=== PATIENT | female | born 1975 | race Caucasian/White ===

== ENCOUNTER 2017-12-02 21:41 | Emergency (ER) | payer BC ==
[~2017-12-02] VITALS: Ht 162.6 cm; Wt 63.5 kg
[2017-12-02] MEDS ORDERED: NS IV 1000 ML 1,000 ML IV ONE (22:03)
[2017-12-02] MEDS ORDERED: PANTOPRAZOLE 40 MG/10 ML (PROTONIX) VIAL IV STA (22:03)
[2017-12-02] MEDS ORDERED: KETOROLAC 30 MG/ML VIAL IVP STA (22:03)
[2017-12-02] MEDS ORDERED: NFBIOT1000 PO (22:05)
[2017-12-02] MEDS ORDERED: MELA3TAB PO (22:05)
[2017-12-02] MEDS ORDERED: METF500T8 (22:05)
[2017-12-02] MEDS ORDERED: ESCI10TA55 (22:05)
[2017-12-02] MEDS ORDERED: PANT40TA3 (22:05)
[2017-12-02] MEDS ORDERED: LISI-556 (22:05)
[2017-12-02] MEDS ORDERED: L.AC1CAP6 PO (22:05)
[2017-12-02] MEDS ORDERED: CETI10CA PO (22:05)
[2017-12-02 22:15] LABS: BASOPHILS # (AUTO) 0.1 10^3/uL (0.0-0.1); BASOPHILS % (AUTO) 0 % (0-10); EOSINOPHILS # (AUTO) 0.3 10^3/uL (0.0-0.3); EOSINOPHILS % (AUTO) 3 % (0-10); HEMATOCRIT 44 % (35-52); LYMPHOCYTES # (AUTO) 1.4 X 10^3 (1.0-4.0); LYMPHOCYTES % (AUTO) 10 % (12-44); MEAN CORPUSCULAR HEMOGLOBIN 29 PG (25-34); MEAN CORPUSCULAR HGB CONC 34 G/DL (32-36); MEAN CORPUSCULAR VOLUME 85 FL (80-99); MEAN PLATELET VOLUME 10.9 FL (7.4-10.4); MONOCYTES % (AUTO) 8 % (0-12); NEUTROPHILS # (AUTO) 10.7 X 10^3 (1.8-7.8); NEUTROPHILS % (AUTO) 79 % (42-75); PLATELET COUNT 317 10^3/uL (130-400); RED BLOOD COUNT 5.18 10^6/uL (4.35-5.85); RED CELL DISTRIBUTION WIDTH 13.6 % (10.0-14.5); WHITE BLOOD COUNT 13.5 10^3/uL (4.3-11.0)
[2017-12-02] MEDS ORDERED: ONDANSETRON 4 MG/2 ML (SDV) Z0FRAN IVP ONE (22:15)
[2017-12-02] MEDS ORDERED: HYOSCYAMINE 0.125 MG (LEVSIN) TAB SL ONE (22:15)
[2017-12-02 22:16] LABS: BILIRUBIN,URINE NEGATIVE (NEGATIVE); CLARITY,URINE SLIGHTLY CLOUDY; COLOR,URINE YELLOW; GLUCOSE, URINE (UA) NEGATIVE (NEGATIVE); KETONES,URINE 3+ (NEGATIVE); LEUKOCYTE ESTERASE ,URINE 2+ (NEGATIVE); NITRITE,URINE NEGATIVE (NEGATIVE); PH,URINE 5 (5-9); PROTEIN,URINE NEGATIVE (NEGATIVE); UROBILINOGEN,URINE NORMAL (NORMAL)
--- NOTE | 2017-12-02 22:25 | ED Abdominal Pain ---
General Chief Complaint: Abdominal/GI Problems Stated Complaint: ABD PAIN Nursing Triage Note: Patient reports epigastric pain on the 18 of November that resolved. Patient reports diarrhea since. Epigastric pain returned today at 1600 while patient was laying on couch. c/o nausea and diarrhea. denies emesis. Sepsis Screen: No Definite Risk Source of Information: Patient Exam Limitations: No Limitations History of Present Illness Date Seen by Provider: Dec 02, 2017 Time Seen by Provider: 21:56 Initial Comments PT ARRIVES VIA POV FROM HOME STATES SHE HAD AN EPISODE OF EPIGASTRIC PAIN ON 11/18/17--LASTED SEVERAL HOURS SINCE THEN, SHE HAS HAD NAUSEA AND WATERY DIARRHEA AND A DULL PAIN IN THE AREA HAS HAD WATERY DIARRHEA X 4 TODAY NO VOMITING URINATING OK ABLE TO KEEP DOWN LIQUIDS HAS HAD SUBJECTIVE FEVER/SWEATS/CHILLS TODAY EPIGASTRIC PAIN RETURNED AN HAS BEEN SEVERE-WAXES AND WANES--AND OCCASIONALLY RADIATES THROUGH TO BACK NO HISTORY OF SIMILAR HAS NOT SOUGHT CARE UNTIL TODAY FOR THIS PROBLEM LMP FIRST WEEK OF NOVEMBER, NORMAL. WITH VASECTOMY PCP: DR. BRADSHAW Allergies and Home Medications Allergies Coded Allergies: Penicillins (Verified Allergy, Unknown, 12/02/17) Home Medications Ciprofloxacin HCl 500 Mg Tablet, 500 MG PO BID Prescribed by: TARAN BRENNAN on 12/03/1722 Hyoscyamine Sulfate 0.125 Mg Tab.subl, 1-2 TAB SL Q4H Prescribed by: TARAN BRENNAN on 12/03/1722 Metronidazole 500 Mg Tablet, 500 MG PO QID Prescribed by: TARAN BRENNAN on 12/03/1722 Ondansetron 4 Mg Tab.rapdis, 4 MG PO Q4H Prescribed by: TARAN BRENNAN on 12/03/1722 Patient Home Medication List Home Medication List Reviewed: Yes Review of Systems Constitutional: see HPI, chills, diaphoresis, fever EENTM: No Symptoms Reported Respiratory: No Symptoms Reported Cardiovascular: No Symptoms Reported Gastrointestinal: See HPI, Abdominal Pain, Diarrhea, Nausea, Poor Appetite; Denies Poor Fluid Intake; Vomiting Genitourinary: No Symptoms Reported Musculoskeletal: see HPI, back pain Skin: no symptoms reported Psychiatric/Neurological: No Symptoms Reported Endocrine: No Symptoms Reported Hematologic/Lymphatic: No Symptoms Reported Past Jxsgotn-[id number]-[id number] Hx Patient Social History Alcohol Use: Denies Use Recreational Drug Use: No Smoking Status: Never a Smoker Recent Foreign Travel: No Contact w/Someone Who Travel: No Recent Infectious Disease Expo: No Physical Abuse: No Sexual Abuse: No Past Medical History Surgeries: Yes (WISDOM TEETH REMOVED ) Respiratory: No Cardiac: Yes High Cholesterol, Hypertension Neurological: No Reproductive Disorders: No Genitourinary: Yes (KIDNEY STONES FOUND INCIDENTALLY ON CT) Kidney Stones Gastrointestinal: Yes (FATTY LIVER) Gastroesophageal Reflux, Liver Disease/Jaundice, C-Diff Musculoskeletal: No Endocrine: Yes ("PRE-DIABETES" ) HEENT: No Cancer: No Psychosocial: Yes Anxiety, Depression Nursing Suicide Risk Score: 0 Integumentary: No Blood Disorders: No Physical Exam Vital Signs Vital Signs - First Documented 12/02/17 21:50 Temp 98.2 Pulse 115 Resp 18 B/P (MAP) 139/104 (116) Pulse Ox 98 Capillary Refill : Less Than 3 Seconds General Appearance: WD/WN, no apparent distress, thin Neck: normal inspection Respiratory: normal breath sounds, no respiratory distress, no accessory muscle use Cardiovascular: regular rate, rhythm, no murmur Gastrointestinal: normal bowel sounds, soft, no organomegaly, no pulsatile mass ; No distended, No guarding, No rebound; tenderness (EPIGASTRIC AND MILD LUQ TENDERNESS); No hernia, No mass Extremities: normal inspection, normal capillary refill Back: normal inspection, no CVA tenderness, no vertebral tenderness 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, no motor/sensory deficits, alert, normal mood/affect, oriented x 3 Skin: normal color, warm/dry Progress/Results/Core Measures Lab Results Laboratory Tests Test 12/02/17 22:00 12/02/17 22:05 Range/Units Urine Color YELLOW Urine Clarity SLIGHTLY CLOUDY Urine pH 5 5-9 Urine Specific [place] 1.020 1.016-1.022 Urine Protein NEGATIVE NEGATIVE Urine Glucose (UA) NEGATIVE NEGATIVE Urine Ketones 3+ H NEGATIVE Urine Nitrite NEGATIVE NEGATIVE Urine Bilirubin NEGATIVE NEGATIVE Urine Urobilinogen NORMAL NORMAL MG/DL Urine Leukocyte Esterase 2+ H NEGATIVE Urine RBC (Auto) 1+ H NEGATIVE Urine RBC 0-2 /HPF Urine WBC 5-10 H /HPF Urine Squamous Epithelial Cells 5-10 /HPF Urine Crystals NONE /LPF Urine Bacteria MODERATE H /HPF Urine Casts NONE /LPF Urine Mucus NEGATIVE /LPF Urine Culture Indicated NO White Blood Count 13.5 H 4.3-11.0 10^3/uL Red Blood Count 5.18 4.35-5.85 10^6/uL Hemoglobin 15.0 11.5-16.0 G/DL Hematocrit 44 35-52 % Mean Corpuscular Volume 85 80-99 FL Mean Corpuscular Hemoglobin 29 25-34 PG Mean Corpuscular Hemoglobin Concent 34 32-36 G/DL Red Cell Distribution Width 13.6 10.0-14.5 % Platelet Count 317 130-400 10^3/uL Mean Platelet Volume 10.9 H 7.4-10.4 FL Neutrophils (%) (Auto) 79 H 42-75 % Lymphocytes (%) (Auto) 10 L 12-44 % Monocytes (%) (Auto) 8 0-12 % Eosinophils (%) (Auto) 3 0-10 % Basophils (%) (Auto) 0 0-10 % Neutrophils # (Auto) 10.7 H 1.8-7.8 X 10^3 Lymphocytes # (Auto) 1.4 1.0-4.0 X 10^3 Monocytes # (Auto) 1.0 0.0-1.0 X 10^3 Eosinophils # (Auto) 0.3 0.0-0.3 10^3/uL Basophils # (Auto) 0.1 0.0-0.1 10^3/uL Sodium Level 139 135-145 MMOL/L Potassium Level 3.7 3.6-5.0 MMOL/L Chloride Level 105 98-107 MMOL/L Carbon Dioxide Level 22 21-32 MMOL/L Anion Gap 12 5-14 MMOL/L Blood Urea Nitrogen 13 7-18 MG/DL Creatinine 0.80 0.60-1.30 MG/DL Estimat Glomerular Filtration Rate > 60 BUN/Creatinine Ratio 16 Glucose Level 103 70-105 MG/DL Calcium Level 9.9 8.5-10.1 MG/DL Total Bilirubin 1.0 0.1-1.0 MG/DL Aspartate Amino Transf (AST/SGOT) 23 5-34 U/L Alanine Aminotransferase (ALT/SGPT) 27 0-55 U/L Alkaline Phosphatase 64 40-136 U/L Total Protein 8.1 6.4-8.2 GM/DL Albumin 4.9 H 3.2-4.5 GM/DL Amylase Level 60 25-125 U/L Lipase 40 8-78 U/L Serum Test, Qualitative NEGATIVE NEGATIVE My Orders Orders - TARAN BRENNAN DO Saline Lock/Iv-Start (12/02/17 22:03) Amylase (12/02/17 22:03) Cbc With Automated Diff (12/02/17 22:03) Comprehensive Metabolic Panel (12/02/17 22:03) Hcg,Qualitative Serum (12/02/17 22:03) Lipase (12/02/17 22:03) Ua Culture If Indicated (12/02/17 22:03) Ct Abdomen/Pelvis W (12/02/17 22:03) Abdomen, Flat & Upright/Decub (12/02/17 22:03) Saline Lock/Iv-Start (12/02/17 22:03) Ketorolac Injection (Toradol Injection) (12/02/17 22:03) Ondansetron Injection (Zofran Injectio (12/02/17 22:15) Hyoscyamine Sl Tablet (Levsin Sl Tablet) (12/02/17 22:15) Saline Lock/Iv-Start (12/02/17 22:03) Ns Iv 1000 Ml (Sodium Chloride 0.9%) (12/02/17 22:03) Pantoprazole Injection (Protonix Injecti (12/02/17 22:03) Iohexol Injection (Omnipaque 350 Mg/Ml 1 (12/02/17 23:15) Ns (Ivpb) (Sodium Chloride 0.9%) (12/02/17 23:15) Rx-Hyoscyamine Tab (Rx-Levsin Sl) (12/02/17 23:59) Rx-Ondansetron Po (Rx-Zofran Po) (12/02/17 23:59) Medications Given in ED Current Medications Medications Dose Ordered Sig/Lyn Route Start Time Stop Time Status Last Admin Dose Admin Hyoscyamine Sulfate 0.25 mg ONCE ONCE SL 12/02/17 22:15 12/02/17 22:16 DC 12/02/17 22:14 0.25 MG Iohexol 100 ml ONCE ONCE IV 12/02/17 23:15 12/02/17 23:16 DC 12/02/17 23:07 100 ML Ondansetron HCl 4 mg ONCE ONCE IVP 12/02/17 22:15 12/02/17 22:16 DC 12/02/17 22:14 4 MG Sodium Chloride 250 ml ONCE ONCE IV 12/02/17 23:15 12/02/17 23:16 DC 12/02/17 23:07 80 ML Sodium Chloride 1,000 ml @ 0 mls/hr Q0M ONCE IV 12/02/17 22:03 12/02/17 22:08 DC 12/02/17 22:16 0 MLS/HR Vital Signs/I&O 12/02/17 12/03/17 21:50 00:24 Temp 98.2 98.2 Pulse 115 99 Resp 18 18 B/P (MAP) 139/104 (116) 135/90 (116) Pulse Ox 98 98 12/03/17 00:00 Intake Total 1000 ml Balance 1000 ml Blood Pressure Mean: 116 Progress Note : Progress Note SYMPTOMS IMPROVED WITH MEDICATIONS NO DIARRHEA DURING ER STAY DISCUSSED WITH PT AND POSSIBLE ETIOLOGIES, TREATMENTS AND FURTHER TESTING OPTIONS IF SYMPTOMS PERSIST-INCLUDING ULTRASOUND, ENDOSCOPY, HIDA SCAN. IN ADDITION TO STOOL STUDIES Comments ACUTE ABDOMEN XRAYS--NO ACUTE PROCESS, PENDING RADIOLOGIST REVIEW CT ABDOMEN/PELVIS--DORENE OF FLUID-FILLED BOWEL, BOWEL PROMINENCE AND POSSIBLE THICKENING. QUESTION ENTEROLCOLITIS. NO OBSTRUCTION OR OTHER ACUTE PROCESS, PER [facility] VIA FAX AT 0610 Reviewed: Reviewed by Me Departure Impression Primary Impression: Gastroenteritis Additional Impressions: UTI (urinary tract infection) Abdominal pain Diarrhea Disposition: 01 HOME, SELF-CARE Condition: Improved Departure-Patient Inst. Referrals: TARAN BRADSHAW MD (PCP/Family) Primary Care Physician Patient Instructions: Acute Abdomen (Belly Pain), Adult (DC), GASTROENTERITIS- 5Y-ADULT, Urinary Tract Infection, Adult (DC) Add. Discharge Instructions: CLEAR LIQUIDS--WATER, BROTH, JELLO, GATORADE TOMORROW IF YOU ARE BETTER, ADD BRATS DIET TO CLEAR LIQUIDS--BANANAS, RICE, APPLESAUCE, TOAST, SALTINES INCREASE YOUR PROBIOTIC TO 2 PILLS 4 TIMES A DAY UNTIL DIARRHEA IS GONE CONTINUE YOUR REGULAR MEDICATIONS PRESCRIBED, EXCEPT HOLD METFORMIN FOR 48 HOURS FOLLOW UP WITH YOUR DR THIS WEEK FOR FURTHER CARE RETURN TO ER IF WORSE All discharge instructions reviewed with patient and/or family. Voiced understanding. Scripts Ondansetron (Zofran Odt) 4 Mg Tab.rapdis 4 MG PO Q4H for Nausea/Vomiting, #10 TAB Prov: TARAN BRENNAN DO 12/03/17 Hyoscyamine Sulfate (Levsin-Sl) 0.125 Mg Tab.subl 1-2 TAB SL Q4H for Abdominal Pain, #15 TAB Prov: TARAN BRENNAN DO 12/03/17 Metronidazole (Flagyl) 500 Mg Tablet 500 MG PO QID for FOR INFECTION, #40 TAB Prov: TARAN BRENNAN DO 12/03/17 Ciprofloxacin HCl (Cipro) 500 Mg Tablet 500 MG PO BID, #20 TAB Prov: TARAN BRENNAN DO 12/03/17 TARAN BRENNAN DO Dec 02, 2017 22:25
[2017-12-02 22:28] LABS: BACTERIA,URINE MODERATE /HPF; RBC,URINE 0-2 /HPF
[2017-12-02 22:41] LABS: ALANINE AMINOTRANSFERASE 27 U/L (0-55); ALBUMIN 4.9 GM/DL (3.2-4.5); ALKALINE PHOSPHATASE 64 U/L (40-136); AMYLASE 60 U/L (25-125); BUN/CREATININE RATIO 16; CALCIUM 9.9 MG/DL (8.5-10.1); CARBON DIOXIDE 22 MMOL/L (21-32); CHLORIDE 105 MMOL/L (98-107); GFR ESTIMATED > 60; GLUCOSE 103 MG/DL (70-105); LIPASE 40 U/L (8-78); POTASSIUM 3.7 MMOL/L (3.6-5.0); SODIUM 139 MMOL/L (135-145); TOTAL PROTEIN 8.1 GM/DL (6.4-8.2)
[2017-12-02] MEDS ORDERED: IOHEXOL 350 MG/ML 100 ML (OMNIPAQUE 350) VIAL IV ONE (23:15)
[2017-12-02] MEDS ORDERED: NS 250 ML (IVPB) BAG IV ONE (23:15)
[2017-12-02] MEDS ORDERED: RX-HYOSCYAMINE 0.125 MG SL (LEVSIN) PPK#6 SL STA (23:59)
[2017-12-02] MEDS ORDERED: RX-ONDANSETRON 4 MG ODT (ZOFRAN) PPK #4 PO STA (23:59)
[2017-12-03] MEDS ORDERED: HYOS0.1283 SL ×3 (00:04→00:23)
[2017-12-03] MEDS ORDERED: METR500T PO ×3 (00:04→00:23)
[2017-12-03] MEDS ORDERED: CIPR-225 PO ×3 (00:04→00:23)
[2017-12-03] MEDS ORDERED: ONDA4TAB8 PO ×3 (00:04→00:23)
[2017-12-03 00:24] VITALS: BP 135/90
--- NOTE | 2017-12-03 06:48 | Diagnostic Imaging Report ---
INDICATION: Abdominal pain. FINDINGS: Two views show normal bowel gas pattern. No evidence of bowel obstruction. The lung bases are clear. There is no free air under the diaphragm. No organomegaly. No pathologic calcifications. No bony abnormalities. IMPRESSION: Normal upright and supine abdomen. Dictated by: Dictated on workstation # [id number]
--- NOTE | 2017-12-03 07:03 | Diagnostic Imaging Report ---
PROCEDURE: CT abdomen and pelvis with contrast. TECHNIQUE: Multiple contiguous axial images were obtained through the abdomen and pelvis after administration of intravenous contrast. INDICATION: Epigastric pain. Diarrhea. Nausea. FINDINGS: Lung bases are clear. There is fatty infiltration of the liver. Gallbladder and bile ducts are normal. Pancreas is normal. Spleen is normal. Adrenal glands are normal. There are cyst noted in the lower pole of the left kidney largest measuring 3 cm. There is a calculus lower pole calyx of the right kidney measuring 5 mm. There is no evidence for renal obstruction. The stomach and small bowel are not distended. There is fluid within the colon with very little stool present. There is a cyst in the left ovary measuring 2.5 cm. Uterus appears normal. There is no free air or free fluid. The appendix is normal. There is no evidence of diverticulitis. IMPRESSION: Fluid-filled loops of colon suggesting enteritis. No evidence of free air or free fluid. Left adnexal cyst measuring approximately 2.5 cm. Dictated by: Dictated on workstation # [id number]
== END 2017-12-03 00:24 | disposition home or self-care (01) ==
LOC: EDUNIT# 21:41 → ER 21:42
DX: K52.9 Noninfective gastroenteritis and colitis, unspecified (principal); N39.0 Urinary tract infection, site not specified; R10.13 Epigastric pain; F41.9 Anxiety disorder, unspecified; F32.9 Major depressive disorder, single episode, unspecified; K21.9 Gastro-esophageal reflux disease without esophagitis; E78.00 Pure hypercholesterolemia, unspecified; I10 Essential (primary) hypertension; Z87.442 Personal history of urinary calculi; Z88.0 Allergy status to penicillin
CPT/HCPCS: 36415; 74019; 74177; 80053; 81000; 82150; 83690; 84703; 85025; 96361; 96374; 96375

== ENCOUNTER 2018-06-29 15:12 | Outpatient (CLI) | payer BC ==
[~2018-06-29] VITALS: Ht 162.6 cm; Wt 61.2 kg
[~2018-06-29 15:12] MED LIST: CETI10CA PO; CIPR-225 PO; ESCI10TA55; HYOS0.1283 SL; L.AC1CAP6 PO; LISI-556 PO; MELA3TAB PO; METF500T8 PO; METR500T PO; NFBIOT1000 PO; ONDA4TAB8 PO; PANT40TA3 PO
[2018-06-29] MEDS ORDERED: SULF-11 PO (16:06)
[2018-06-29] MEDS ORDERED: OXYC-471 PO (16:06)
[2018-06-29] MEDS ORDERED: ONDA8TAB13 PO (16:06)
[2018-06-29] MEDS ORDERED: TAMS0.4C2 PO (16:06)
== END 2018-06-29 16:12 | disposition home or self-care (01) ==
LOC: PREOP 15:12
PROVIDERS: ATTEND Urology
DX: Z01.818 Encounter for other preprocedural examination (principal)

== ENCOUNTER 2018-06-30 06:07 | Day surgery (SDC) | payer BC ==
[~2018-06-30] VITALS: Ht 162.6 cm; Wt 61.2 kg
[~2018-06-30 06:07] MED LIST changes: +ONDA8TAB13 PO; +OXYC-471 PO; +SULF-11 PO; +TAMS0.4C2 PO
--- OUTSIDE RECORDS SUMMARY | 2018-06-30 06:10 | XMS REPORT | Continuity of Care Document ---
Author Author [facility] Organization [facility] Address Unknown Phone Unavailable Allergies Active Description Code Type Severity Reaction Onset Reported/Identified Relationship to Patient Clinical Status Yes PENICILLIN V POTASSIUM PENICILLIN V POTASSI SEVERE Yes PENICILLIN V POTASSIUM SEVERE UNKNOWN Yes Penicillins [id number] Drug Allergy Unknown N/A 12/02/2017 Medications Medication Packaging Start Date Stop Date Route Dosage Sig ONDANSETRON VIAL INJ 4 MG/2CC (ZOFRAN 2CC VIAL) MG 10/07/2016 10/07/2016 PRN ONCE FENTANYL AMP INJ 100 MCG/2CC MCG 10/07/2016 ONCE&1326 KETOROLAC VIAL INJ 30 MG/CC (TORADOL VIAL) MG 10/07/2016 10/07/2016 ONCE&1405 FENTANYL AMP INJ 100 MCG/2CC MCG 10/07/2016 ONCE&1600 FENTANYL AMP INJ 100 MCG/2CC MCG 10/07/2016 ONCE&1633 KETOROLAC VIAL INJ 30 MG/CC (TORADOL VIAL) MG 06/28/2018 06/28/2018 PRN ONCE ONDANSETRON VIAL INJ 4 MG/2CC (ZOFRAN 2CC VIAL) MG 06/28/2018 06/28/2018 PRN ONCE FENTANYL INJ 100 MCG/2CC VIAL MCG 06/28/2018 06/28/2018 ONCE&2000 NORMAL SALINE 1000CC IV BAG INJ 0.9 % (NS 1000CC IV BAG) ml 06/28/2018 07/13/2018 CONTINUOUSEVERY 0 Hour FENTANYL INJ 100 MCG/2CC VIAL MCG 06/28/2018 06/28/2018 ONCE&2023 TAMSULOSIN CAP 0.4 MG (FLOMAX) MG 06/28/2018 06/28/2018 ONCE&2024 Hydromorphone inj 2mg/cc vial (Dilaudid) MG 06/28/2018 06/28/2018 PRN ONCE ONDANSETRON VIAL INJ 4 MG/2CC (ZOFRAN 2CC VIAL) MG 06/28/2018 06/28/2018 PRN ONCE Problems Date Dx Coded Attending Type Code Diagnosis Diagnosed By 05/26/2013 MIKA CUELLO, SAUMYA Juarez 311 MO DEPRESS NOS 10/07/2016 Robinson Esquivel 008.8 10/07/2016 Robinson Esquivel 250.00 DIABETES MELLITUS WITHOUT MENTION OF COMPLICATION, TYPE II OR UNSPECIFIED TYPE, NOT STATED UNCONTROLLED 10/07/2016 Robinson Esquivel 272.4 OTHER AND UNSPECIFIED HYPERLIPIDEMIA 10/07/2016 Robinson Esquivel 401.0 MALIGNANT ESSENTIAL HYPERTENSION 10/07/2016 Robinson Esquivel 530.81 ESOPHAGEAL REFLUX 10/07/2016 Robinson Esquivel 577.0 10/07/2016 Robinson Esquivel 592.0 10/07/2016 Robinson Esquivel 789.1 10/07/2016 Robinson Esquivel A08.4 VIRAL INTESTINAL INFECTION, UNSPECIFIED 10/07/2016 Robinson Esquivel E11.9 TYPE 2 DIABETES MELLITUS WITHOUT COMPLICATIONS 10/07/2016 Robinson Esquivel E78.5 HYPERLIPIDEMIA, UNSPECIFIED 10/07/2016 Robinson Esquivel I10 ESSENTIAL (PRIMARY) HYPERTENSION 10/07/2016 Robinson Esquivel K21.9 GASTRO-ESOPHAGEAL REFLUX DISEASE WITHOUT ESOPHAGITIS 10/07/2016 Robinson Esquivel K85.90 ACUTE PANCREATITIS WITHOUT NECROSIS OR INFECTION, UNSP 10/07/2016 Robinson Esquivel N20.0 CALCULUS OF KIDNEY 10/07/2016 Robinson Esquivel R16.0 HEPATOMEGALY, NOT ELSEWHERE CLASSIFIED 12/02/2017 JULES HUDSON MD Ot 401.9 HYPERTENSION NOS 12/02/2017 JULES HUDSON MD Ot 536.8 STOMACH FUNCTION DIS NEC 12/02/2017 JULES HUDSON MD Ot 780.79 OTH MALAISE FATIGUE 12/02/2017 JULES HUDSON MD Ot 786.50 CHEST PAIN NOS 12/03/2017 HEATHER BRENNAN DO Ot E78.00 PURE HYPERCHOLESTEROLEMIA, UNSPECIFIED 12/03/2017 HEATHER BRENNAN DO Ot F32.9 MAJOR DEPRESSIVE DISORDER, SINGLE EPISOD 12/03/2017 HEATHER BRENNAN DO Ot F41.9 ANXIETY DISORDER, UNSPECIFIED 12/03/2017 MIKA DO, HEATHER K Ot I10 ESSENTIAL (PRIMARY) HYPERTENSION 12/03/2017 MIKA DO, HEATHER K Ot K21.9 GASTRO-ESOPHAGEAL REFLUX DISEASE WITHOUT 12/03/2017 MIKA DO, HEATHER K Ot K52.9 NONINFECTIVE GASTROENTERITIS AND COLITIS 12/03/2017 MIKA DO, HEATHER K Ot N39.0 URINARY TRACT INFECTION, SITE NOT SPECIF 12/03/2017 MIKA DO, HEATHER K Ot R10.13 EPIGASTRIC PAIN 12/03/2017 MIKA DO, HEATHER K Ot Z87.442 PERSONAL HISTORY OF URINARY CALCULI 12/03/2017 MIKA DO, HEATHER K Ot Z88.0 ALLERGY STATUS TO PENICILLIN 12/04/2017 MIKA DO, HEATHER K Ot E78.00 PURE HYPERCHOLESTEROLEMIA, UNSPECIFIED 12/04/2017 MIKA DO, HEATHER K Ot F32.9 MAJOR DEPRESSIVE DISORDER, SINGLE EPISOD 12/04/2017 MIKA DO, HEATHER K Ot F41.9 ANXIETY DISORDER, UNSPECIFIED 12/04/2017 MIKA DO, HEATHER K Ot I10 ESSENTIAL (PRIMARY) HYPERTENSION 12/04/2017 MIKA DO, HEATHER K Ot K21.9 GASTRO-ESOPHAGEAL REFLUX DISEASE WITHOUT 12/04/2017 MIKA DO, HEATHER K Ot K52.9 NONINFECTIVE GASTROENTERITIS AND COLITIS 12/04/2017 MIKA DO, HEATHER K Ot N39.0 URINARY TRACT INFECTION, SITE NOT SPECIF 12/04/2017 MIKA DO, HEATHER K Ot R10.13 EPIGASTRIC PAIN 12/04/2017 MIKA DO, HEATHER K Ot Z87.442 PERSONAL HISTORY OF URINARY CALCULI 12/04/2017 MIKA DO, HEATHER K Ot Z88.0 ALLERGY STATUS TO PENICILLIN 03/04/2018 JULES HUDSON MD Ot 401.9 HYPERTENSION NOS 03/04/2018 JULES HUDSON MD Ot 536.8 STOMACH FUNCTION DIS NEC 03/04/2018 JULES HUDSON MD Ot 780.79 OTH MALAISE FATIGUE 03/04/2018 JULES HUDSON MD Ot 786.50 CHEST PAIN NOS Procedures Code Description [place] [address] PSYCH DIAGNOSTIC EVALUATION 05/28/2013 Results Test Result Range BMP - 08/20/16 11:59 Anion Gap 14 6-14 BUN 13 mg/dL 5-25 Calcium 9.4 mg/dL 8.3-10.4 Chloride 107 mmol/L 95-114 CO2 23 mEq/L 22-33 Creat 0.77 mg/dL 0.50-1.50 eGFR 82 mL/min/1.73m2 >59 Glucose 88 mg/dL 70-110 Osmo 289 280-295 Potassium 4.3 mmol/L 3.5-5.3 Sodium 140 mmol/L 134-148 Sed Rate - 10/07/16 13:23 Sed Rate 2 mm/hr 9-15 Urinalysis - 10/07/16 13:23 Icotest N/A Negative Urine Volume Urine Volume Sufficient (10mL) Urine Yeast No Yeast present Urine-Appearance Slightly Cloudy Clear Urine-Bacteria Trace Urine-Bilirubin Negative Negative Urine-Blood Trace-intact Negative Urine-Color Yellow Colorless-Lt. Yellow Urine-Epithelial Cells 5-10/HPF Urine-Glucose Negative Negative Urine-Ketones Negative Negative Urine-Leukocytes Negative Negative Urine-Nitrite Negative Negative Urine-Other Urine Saved if Culture Needed (48hrs from time of collection) Urine-pH 6.0 5-8.5 Urine-Protein Negative Negative Urine-RBC Rare/HPF Urine-Specific [place] 1.020 1.000-1.030 Urine-WBC Negative Urobilinogen 0.2 E.U./dL 0.2-1.0 C.difficile, DNA Amplification - 10/14/16 15:56 C.difficile, DNA Amplification NEGATIVE: No DNA evidence of toxogenic C. difficile detected. Negative Stool Culture - 10/14/16 17:13 CAMPYLOBACTER CULTURE FINAL REPORT E COLI SHIGA TOXIN EIA NEGATIVE NEGATIVE RESULT 1 NO SALMONELLA OR SHIGELLA RECOVERED. Salmonella/Shigella Screen FINAL REPORT Result 1 NO CAMPYLOBACTER SPECIES ISOLATED. Pap IG, rfx HPV ASCU - 05/12/17 17:59 DIAGNOSIS: Comment Specimen adequacy: Comment Performed by: Comment . . Note: Comment Test Methodology: Comment . Comment Lipid Panel - 05/19/17 10:14 C/HDL 5.0 3.7-6.7 Cholesterol 189 mg/dL 100-240 HDL 38 mg/dL 30-85 LDL-Calculated 58 mg/dL 0-100 Trig 465 called to Sayra mg/dL 35-160 VLDL 93 mg/dL 0-42 Complete urinalysis with reflex to culture - 12/02/17 22:00 Urine color determination YELLOW NRG Urine clarity determination SLIGHTLY CLOUDY NRG Urine pH measurement by test strip 5 5-9 Specific gravity of urine by test strip 1.020 1.016- 1.022 Urine protein assay by test strip, semi-quantitative NEGATIVE NEGATIVE Urine glucose detection by automated test strip NEGATIVE NEGATIVE Erythrocytes detection in urine sediment by light microscopy 1+ NEGATIVE Urine ketones detection by automated test strip 3+ NEGATIVE Urine nitrite detection by test strip NEGATIVE NEGATIVE Urine total bilirubin detection by test strip NEGATIVE NEGATIVE Urine urobilinogen measurement by automated test strip (mass/volume) NORMAL NORMAL Urine leukocyte esterase detection by dipstick 2+ NEGATIVE Automated urine sediment erythrocyte count by microscopy (number/high power field) [HPF] NRG Automated urine sediment leukocyte count by microscopy (number/high power field ) [HPF] NRG Bacteria detection in urine sediment by light microscopy MODERATE NRG Squamous epithelial cells detection in urine sediment by light microscopy 5-10 NRG Crystals detection in urine sediment by light microscopy NONE NRG Casts detection in urine sediment by light microscopy NONE NRG Mucus detection in urine sediment by light microscopy NEGATIVE NRG Complete urinalysis with reflex to culture NO NRG Complete blood count (CBC) with automated white blood cell (WBC) differential - 12/02/17 22:05 Blood leukocytes automated count (number/volume) 13.5 10*3/uL 4.3-11.0 Blood erythrocytes automated count (number/volume) 5.18 10*6/uL 4.35-5.85 Venous blood hemoglobin measurement (mass/volume) 15.0 g/dL 11.5-16.0 Blood hematocrit (volume fraction) 44 % 35-52 Automated erythrocyte mean corpuscular volume 85 [foz_us] 80-99 Automated erythrocyte mean corpuscular hemoglobin (mass per erythrocyte) 29 pg 25-34 Automated erythrocyte mean corpuscular hemoglobin concentration measurement ( mass/volume) 34 g/dL 32-36 Automated erythrocyte distribution width ratio 13.6 % 10.0-14.5 Automated blood platelet count (count/volume) 317 10*3/uL 130-400 Automated blood platelet mean volume measurement 10.9 [foz_us] 7.4-10.4 Automated blood neutrophils/100 leukocytes 79 % 42-75 Automated blood lymphocytes/100 leukocytes 10 % 12-44 Blood monocytes/100 leukocytes 8 % 0-12 Automated blood eosinophils/100 leukocytes 3 % 0-10 Automated blood basophils/100 leukocytes 0 % 0-10 Blood neutrophils automated count (number/volume) 10.7 10*3 1.8-7.8 Blood lymphocytes automated count (number/volume) 1.4 10*3 1.0-4.0 Blood monocytes automated count (number/volume) 1.0 10*3 0.0-1.0 Automated eosinophil count 0.3 10*3/uL 0.0-0.3 Automated blood basophil count (count/volume) 0.1 10*3/uL 0.0-0.1 Serum or plasma choriogonadotropin ( test) detection - 12/02/17 22:05 Serum or plasma choriogonadotropin ( test) detection NEGATIVE NEGATIVE Comprehensive metabolic panel - 12/02/17 22:05 Serum or plasma sodium measurement (moles/volume) 139 mmol/L 135-145 Serum or plasma potassium measurement (moles/volume) 3.7 mmol/L 3.6-5.0 Serum or plasma chloride measurement (moles/volume) 105 mmol/L 98-107 Carbon dioxide 22 mmol/L 21-32 Serum or plasma anion gap determination (moles/volume) 12 mmol/L 5-14 Serum or plasma urea nitrogen measurement (mass/volume) 13 mg/dL 7-18 Serum or plasma creatinine measurement (mass/volume) 0.80 mg/dL 0.60-1.30 Serum or plasma urea nitrogen/creatinine mass ratio 16 NRG Serum or plasma creatinine measurement with calculation of estimated glomerular filtration rate > NRG Serum or plasma glucose measurement (mass/volume) 103 mg/dL 70-105 Serum or plasma calcium measurement (mass/volume) 9.9 mg/dL 8.5-10.1 Serum or plasma total bilirubin measurement (mass/volume) 1.0 mg/dL 0.1-1.0 Serum or plasma alkaline phosphatase measurement (enzymatic activity/volume) 64 U/L 40-136 Serum or plasma aspartate aminotransferase measurement (enzymatic activity/ volume) 23 U/L 5-34 Serum or plasma alanine aminotransferase measurement (enzymatic activity/volume ) 27 U/L 0-55 Serum or plasma protein measurement (mass/volume) 8.1 g/dL 6.4-8.2 Serum or plasma albumin measurement (mass/volume) 4.9 g/dL 3.2-4.5 Serum or plasma amylase measurement (enzymatic activity/volume) - 12/02/17 22: 05 Serum or plasma amylase measurement (enzymatic activity/volume) 60 U /L 25-125 Lipase - 12/02/17 22:05 Lipase 40 U/L 8-78 Lipase - 06/28/18 19:40 Lipase 46 U/L 7-59 Test-Serum - 06/28/18 19:40 Preg Test-S Negative Negative Urinalysis - 06/28/18 21:07 Icotest N/A Negative Urine Crystals Amorphous material: moderate/HPF Urine Volume Urine Volume Sufficient (10mL) Urine-Appearance Slightly Cloudy Clear Urine-Bacteria Trace Urine-Bilirubin Negative Negative Urine-Blood 3+ Negative Urine-Color Yellow Colorless-Lt. Yellow Urine-Epithelial Cells 5-10/HPF Urine-Glucose Negative Negative Urine-Ketones Trace Negative Urine-Leukocytes Trace Negative Urine-Nitrite Negative Negative Urine-Other Urine Saved if Culture Needed (48hrs from time of collection) Urine-pH 5.5 5-8.5 Urine-Protein 1+ Negative Urine-RBC 20-40/HPF Urine-Specific [place] >=1.030 1.000-1.030 Urine-WBC 2-4/HPF Urobilinogen 0.2 0.2-1.0 Encounters ACCT No. Visit Date/Time Discharge Status Pt. Type Provider Facility Loc./Unit Complaint [id number] 06/29/2018 15:12:00 06/29/2018 16:12:00 DIS Outpatient HUSSEIN URIBE MD [facility] PREOP STONE [id number] 12/02/2017 21:42:00 12/03/2017 00:24:00 DIS Emergency MIKA DO, HEATHER K [facility] ER ABD PAIN [id number] 05/18/2014 08:59:00 05/18/2014 23:59:59 CLS Outpatient JULES HUDSON MD [facility] CARD CP,FATIGUE,HTN [id number] 06/30/2018 06:07:00 ACT Outpatient HUSSEIN URIBE MD [facility] SDC STONE [id number] 05/15/2017 17:16:00 Document Registration [id number] 06/28/2018 19:33:00 06/28/2018 22:00:00 DIS Outpatient [facility] ER [id number] 05/20/2017 15:29:00 05/20/2017 23:59:00 DIS Outpatient Heather Burgos [id number] 05/19/2017 10:06:00 05/19/2017 23:59:00 DIS Outpatient Heather Burgos [id number] 05/12/2017 17:56:00 05/12/2017 23:59:00 DIS Outpatient Heather Burgos [id number] 10/14/2016 15:49:00 10/14/2016 23:59:00 DIS Outpatient Heather Burgos [id number] 10/07/2016 12:51:00 10/07/2016 16:43:00 [id number] 08/20/2016 11:49:00 08/20/2016 23:59:00 DIS Outpatient Heather Burgos [id number] 10/07/2016 13:27:17 Document Registration [id number] 05/26/2013 09:56:00 05/26/2013 23:59:59 [facility] Outpatient MIKA PHD, SAUMYA Juarez
[2018-06-30 06:30] VITALS: BP 114/78
[2018-06-30] MEDS ORDERED: LEVOFLOXACIN 500 MG/100 ML IV 100 ML IV ONE (06:30)
[2018-06-30] MEDS ORDERED: MIDAZOLAM 2 MG/2 ML (VERSED) VIAL ONE (06:55)
[2018-06-30] MEDS ORDERED: fentaNYL INJECTION 100 MCG/2 ML AMP ONE (06:55)
--- NOTE | 2018-06-30 06:59 | Progress Note-Pre Operative ---
Pre-Operative Progress Note H&P Reviewed The H&P was reviewed, patient examined and no changes noted. Date Seen by Provider: Jun 30, 2018 Time Seen by Provider: 06:58 Date H&P Reviewed: Jun 30, 2018 Time H&P Reviewed: 06:58 Pre-Operative Diagnosis: RT DISTAL URETERAL STONE HUSSEIN URIBE MD Jun 30, 2018 6:59 am
--- NOTE | 2018-06-30 07:00 | Progress Note-Post Operative ---
Post-Operative Progess Note Surgeon (s)/Urologist Md (s) Surgeon HUSSEIN URIBE MD Urologist Md: NONE Pre-Operative Diagnosis RT DISTAL URETERAL STONE AND VAGINAL PROLAPSE Post-Operative Diagnosis SAME Procedure & Operative Findings Date of Procedure 06/30/18 Procedure Performed/Findings RT URETEROSCOPY WITH STONE LITHOTRIPSY Anesthesia Type GENERAL Estimated Blood Loss Estimated blood loss (mL): NONE Specimens/Packing Specimens Removed NONE Packing: NONE HUSSEIN URIBE MD Jun 30, 2018 7:00 am
[2018-06-30] MEDS ORDERED: proPOfol 200 MG/20 ML (DIPRIVAN) VIAL IV ONE (07:01)
[2018-06-30] MEDS ORDERED: SEVOFLURANE (ULTANE) 15 ML INHAL SOLN ONE ×2 (07:01)
[2018-06-30] MEDS ORDERED: LIDOCAINE PF 2% 5 ML (XYLOCAINE) VIAL ONE (07:01)
[2018-06-30] MEDS ORDERED: ONDANSETRON 4 MG/2 ML (SDV) Z0FRAN ONE (07:01)
[2018-06-30] MEDS ORDERED: ROCURONIUM 10 MG/ML 5 ML SYRINGE IV ONE (07:01)
--- NOTE | 2018-06-30 07:02 | Discharge Inst-Urology ---
Discharge Inst-Urology Patient Instructions/Follow Up Plan Please make appointment to been seen in office in 2 weeks. Strain all urine and save fragments and bring to office appointment Increase oral fluids for 48 hours and then as needed. Diet and Activity as tolerated. If questions or concerns contact your physician Or seek help at emergency department. HUSSEIN URIBE MD Jun 30, 2018 7:02 am
[2018-06-30] MEDS ORDERED: LACTATED RINGERS 1,000 ML IV PRN (07:17)
--- NOTE | 2018-06-30 07:21 | Diagnostic Imaging Report ---
INDICATION: Right lower quadrant pain. COMPARISON: CT abdomen and pelvis from 12/02/2017. FINDINGS: There persists a 4-6 mm mineralized focus to the right L4 vertebral body which is below the level of the renal shadow. No definitive mineralized foci overlying the renal fossa. There is also a 5 mm rounded mineralization in the pelvis. IMPRESSION: Potential mineralized stones along the right ureteral tract. However, these could be phleboliths and/or intraluminal contents in the bowel. CT abdomen without contrast would be better suited to assess location of the stones. Dictated by: Dictated on workstation # [id number]
[2018-06-30] MEDS ORDERED: GLYCOPYRROLATE 0.2 MG/ML (ROBINUL) 2 ML VIAL ONE (08:13)
[2018-06-30] MEDS ORDERED: NEOSTIGMINE 1 MG/ML 5 ML SYRINGE ONE (08:13)
[2018-06-30] MEDS ORDERED: morphine INJ 10 MG/ML 1ML (SYR OR VIAL) ONE (08:23)
[2018-06-30] MEDS ORDERED: ONDANSETRON 4 MG/2 ML (SDV) Z0FRAN IVP PRN (08:30)
[2018-06-30] MEDS ORDERED: morphine INJ 10 MG/ML 1ML (SYR OR VIAL) IVP ONE (08:30)
[2018-06-30 09:00] VITALS: BP 101/72
--- NOTE | 2018-06-30 09:19 | Diagnostic Imaging Report ---
INDICATION: Nephrolithiasis. FINDINGS: Fluoroscopy was provided for Dr. Brandon during lithotripsy for 28 seconds. No images were obtained. IMPRESSION: Intraprocedural fluoroscopy as described. Dictated by: Dictated on workstation # [id number]
[2018-06-30 09:30] VITALS: BP 110/77
--- NOTE | 2018-06-30 09:43 | OPERATIVE REPORT ---
DATE OF SERVICE: 06/30/2018 PREOPERATIVE DIAGNOSIS: Right distal ureteral stone. POSTOPERATIVE DIAGNOSES: 1. Right distal ureteral stone. 2. Vaginal prolapse. OPERATION PERFORMED: Right ureteroscopy with stone lithotripsy. SURGEON: Juan Uribe MD. ANESTHESIA: General. COMPLICATIONS: None. DESCRIPTION OF PROCEDURE: Under satisfactory general anesthesia, the patient in lithotomy position, genitalia were prepped and draped in the usual sterile fashion. Cystoscope was introduced and the bladder was essentially normal except the very sluggish efflux on the right side. Using the foroblique lens, I dilated the right ureteral orifice and intramural portion to the level of the stone, which was felt in the intramural portion to accommodate a 6.9 Georgian semirigid ureteroscope. I visualized the stone that was very spiky and embedded in the intramural portion. I fragmented it completely with the LithoClast, some of the fragments fell in the bladder. There was no significant fragment. I went up to the mid ureter. There were no further stones or fragments. I also looked in an antegrade fashion, removed the ureteroscope, reinserted the cystoscope to empty the bladder, noted also a vaginal prolapse. The patient tolerated the procedure and anesthesia well and was sent to recovery room in stable condition. PLAN: We will see her back in two weeks and work her up for stone prevention. Job ID: [id number] DocumentID: [id number] Dictated Date: 06/30/2018 08:21:34 Drywall Applicator Date: 06/30/2018 09:42:08 Dictated By: JUAN URIBE MD
[2018-06-30 10:00] VITALS: BP 112/72
--- NOTE | 2018-06-30 10:35 | Anesthesia-General Post-Op ---
General Patient Condition Mental Status/LOC: Same as Preop Cardiovascular: Satisfactory Nausea/Vomiting: Absent Respiratory: Satisfactory Pain: Controlled Complications: Absent Post Op Complications Complications None Follow Up Care/Instructions Patient Instructions None needed. Anesthesia/Patient Condition Patient Condition Patient is doing well, no complaints, stable vital signs, no apparent adverse anesthesia problems. No complications reported per nursing. DIEGO RODNEY CRNA Jun 30, 2018 10:35
== END 2018-06-30 10:15 | disposition home or self-care (01) ==
LOC: SDC 06:07
PROVIDERS: ATTEND Urology
DX: N20.1 Calculus of ureter (principal); N81.10 Cystocele, unspecified; Z11.2 Encounter for screening for other bacterial diseases; K21.9 Gastro-esophageal reflux disease without esophagitis; Z80.52 Family history of malignant neoplasm of bladder; R73.03 Prediabetes; I10 Essential (primary) hypertension; E78.5 Hyperlipidemia, unspecified; F32.9 Major depressive disorder, single episode, unspecified; Z79.84 Long term (current) use of oral hypoglycemic drugs; Z79.899 Other long term (current) drug therapy
CPT/HCPCS: 74018; 82962; 84703; 87081

== ENCOUNTER 2018-07-17 15:31 | Outpatient (RCR) | payer BC | END 2018-10-12 | disposition home or self-care (01) | LOC: LAB 15:31 | PROVIDERS: ATTEND Urology | DX: N20.9 Urinary calculus, unspecified (principal) | CPT/HCPCS: 36415; 82140; 82340; 82507; 82570; 83735; 83945; 83986; 84105; 84133; 84300; 84392; 84560; 88300 ==

== ENCOUNTER → 2019-06-10 | Outpatient (CLI) | payer BC ==
--- NOTE | 2019-06-10 13:19 | Diagnostic Imaging Report ---
PROCEDURE: US Non-ob pelvis comp/trans. TECHNIQUE: Multiple realtime grayscale images were obtained of the pelvis in various projections endovaginally. Transabdominal imaging was also performed. INDICATION: Dysmenorrhea and abnormal uterine bleeding. FINDINGS: The uterus measures 8.6 x 5.8 x 5.8 cm. Endometrium is 5 mm in thickness. There is a 3.0 x 2.8 x 2.2 cm mass along the posterior margin of the uterine body. This is suggestive of an exophytic or potentially pedunculated fibroid. No other myometrial masses are seen. Right ovary measures 3.8 x 3.4 x 2.2 cm and the left ovary measures 3.3 x 3.5 x 2.3 cm. There is blood flow to both ovaries. No adnexal mass is identified. There is an approximately 12 mm cervical nabothian cysts. IMPRESSION: Probable exophytic or pedunculated fibroid posteriorly. The study is otherwise unremarkable. Dictated by: Dictated on workstation # [id number]
== END ==
LOC: RAD 11:56
PROVIDERS: ATTEND Obstetrics & Gynecology
DX: N94.6 Dysmenorrhea, unspecified (principal); N93.9 Abnormal uterine and vaginal bleeding, unspecified
CPT/HCPCS: 76830; 76856

== ENCOUNTER → 2020-02-15 | Outpatient (CLI) | payer BC ==
[~2020-02-15] MED LIST changes: -MELA3TAB PO; +MELA3TAB39 PO; +METF-865 PO; -METF500T8 PO
--- NOTE | 2020-02-15 14:30 | Diagnostic Imaging Report ---
INDICATION: Kidney stones. TIME OF EXAM: 2:10 PM. COMPARISON: 06/30/2018. FINDINGS: The bowel gas pattern is unremarkable. Moderate stool in the transverse and descending colon is noted. There is a calcific density adjacent to the tip of the right transverse process of L4 measuring 3 to 4 mm. This may represent a ureteral calculus. No other radiopaque calculi are seen. IMPRESSION: Questionable right proximal ureteric calculus at the level of L4. No other abnormality is seen. Dictated by: Dictated on workstation # [id number]
== END ==
LOC: RAD 13:49
PROVIDERS: ATTEND Urology
DX: N20.0 Calculus of kidney (principal)
CPT/HCPCS: 74018

== ENCOUNTER → 2021-05-24 | Outpatient (CLI) | payer BC ==
[~2021-05-24] MED LIST changes: +ESCI-2; -ESCI10TA55; +GADOBUTROL 7.5 MMOL/7.5 ML (GADAVIST) VIAL IV ONE; -LISI-556 PO; +LISI-729 PO; -OXYC-471 PO; +OXYC1TAB11 PO; -PANT40TA3 PO; +PANT40TA52 PO
--- NOTE | 2021-05-24 11:31 | Diagnostic Imaging Report ---
PROCEDURE: MR imaging of the brain with and without contrast. TECHNIQUE: Multiplanar, multisequence MR imaging of the brain was performed with and without contrast. INDICATION: Headaches. COMPARISON: none Findings: No acute ischemia, mass, or hemorrhage. No abnormal enhancement. The ventricles, cortical sulci, and basilar cisterns are symmetric and unremarkable. The sellar and suprasellar regions have a normal appearance. The major intracranial flow voids are intact. The brainstem and posterior fossa are unremarkable. The paranasal sinuses and mastoid air cells demonstrate normal signal characteristics. The globes and orbits are symmetric and unremarkable. The scalp and calvarium have a normal appearance. Impression: 1. No acute ischemia, mass, or hemorrhage. No focal signal abnormalities or abnormal enhancement. Dictated by: Dictated on workstation # [id number]
== END ==
LOC: RAD 09:30
PROVIDERS: ATTEND Nurse Practitioner Family
DX: G43.011 Migraine without aura, intractable, with status migrainosus (principal); I10 Essential (primary) hypertension
CPT/HCPCS: 70553

== ENCOUNTER → 2021-07-23 | Outpatient (CLI) | payer BC ==
[~2021-07-23] MED LIST changes: -GADOBUTROL 7.5 MMOL/7.5 ML (GADAVIST) VIAL IV ONE; -LISI-729 PO; +LISI5TAB20 PO
== END ==
LOC: CARD 08:43
PROVIDERS: ATTEND Internal Medicine Cardiovascular Disease
DX: I34.0 Nonrheumatic mitral (valve) insufficiency (principal); I10 Essential (primary) hypertension; I25.10 Atherosclerotic heart disease of native coronary artery without angina pectoris
CPT/HCPCS: 93306

== ENCOUNTER → 2021-08-22 | Outpatient (CLI) | payer BC ==
[~2021-08-22] VITALS: Ht 162 cm; Wt 72.0 kg
[~2021-08-22] MED LIST changes: +CATHETER FLUSH 10 ML SYR IV PRN
[2021-08-22 09:49] VITALS: BP 151/97
--- NOTE | 2021-08-22 14:06 | Cardiology Stress Test Report ---
Stress Test Report Date of Procedure/Referring: Date of Procedure: Aug 22, 2021 PCP Jules Randall MD Admitting Physician Heather Burgos MD Indications: HTN Baseline Heart Rate: 81 Baseline Blood Pressure: Blood Pressure Systolic: 151 Blood Pressure Diastolic: 97 Vital Signs Date Time Temp Pulse Resp B/P (MAP) Pulse Ox O2 Delivery O2 Flow Rate FiO2 08/22/21 09:49 81 16 151/97 (115) 98 Room Air Baseline Vital Signs Vital Signs Date Time Temp Pulse Resp B/P (MAP) Pulse Ox O2 Delivery O2 Flow Rate FiO2 08/22/21 09:49 81 16 151/97 (115) 98 Room Air Baseline EKG: Baseline EKG: NSR Summary: After explaining the procedure and details to the patient, she signed the consent and was brought to the stress nuclear laboratory. Patient exercised on standard Donal protocol, EKG, heart rate and blood pressure were monitored continuously, resting and stress doses of radio tracer were injected, imaging was acquired and reviewed in the short axis, horizontal long axis and vertical long axis views Patient was able to exercise for a total of 5.30 minutes on Donal protocol, METs 7.1 Maximum heart rate 157 Maximum blood pressure 186/96 Stress EKG, Minimal nondiagnostic changes Recovery EKG, Return to baseline TID: 0.85 SSS: 2 SDS: 2 EF: 74 Conclusion: 1. Good exercise tolerance for a total of 5 minutes 30 seconds on standard Donal protocol total of 7.1 METS achieving 90% of maximal expected heart rate 2. Appropriate heart rate response to exercise with mild hypertensive response to exercise with peak blood pressure 186/96 return to baseline during recovery 3. Nondiagnostic EKG changes with exercise return to baseline during recovery 4. No significant ischemia or infarction on SPECT images 5. Normal left ventricular size, EF 74%. JULES RANDALL MD Aug 22, 2021 14:06
== END ==
LOC: CARD 08:00
PROVIDERS: ATTEND Internal Medicine Cardiovascular Disease
DX: I10 Essential (primary) hypertension (principal); I25.10 Atherosclerotic heart disease of native coronary artery without angina pectoris
CPT/HCPCS: 78452; 93017; A9502

== ENCOUNTER → 2021-10-17 | Outpatient (CLI) | payer BC ==
[~2021-10-17] MED LIST changes: -CATHETER FLUSH 10 ML SYR IV PRN
--- NOTE | 2021-10-18 08:50 | Diagnostic Imaging Report ---
INDICATION: Routine screening. COMPARISON is made with prior mammograms 07/03/2020 and 03/25/2019. 2-D and 3-D bilateral screening mammography was performed with CAD. Both breasts are heterogeneously dense, limiting the sensitivity of mammography. The parenchymal pattern is stable. No mass or malignant-appearing microcalcifications are seen. Axillae are unremarkable. IMPRESSION: BI-RADS Category 1 No mammographic features suspicious for malignancy are identified. ACR BI-RADS Category 1: Negative. Result letter will be mailed to the patient. Note: At least 10% of breast cancer is not imaged by mammography. Dictated by: Dictated on workstation # [id number]
== END ==
LOC: RAD 15:00
PROVIDERS: ATTEND Obstetrics & Gynecology
DX: Z12.31 Encounter for screening mammogram for malignant neoplasm of breast (principal)
CPT/HCPCS: 77063; 77067